=== PATIENT | female | born 1975 | race Caucasian/White ===

== ENCOUNTER → 2022-12-28 09:29 | Outpatient (BNVA) | payer BC, SELFPAY | PROVIDERS: Visit Provider Physician Assistant ==

== ENCOUNTER 2023-02-02 08:59 | Outpatient (AMB) | payer OTHER, SELFPAY ==
--- NOTE | 2023-02-02 09:00 | MHC.OFFVISWM ---
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 Case Briefer Required: No Allergies No Known Allergies Allergy (Verified 02/02/23 09:02) Medication List - Last Reconciled 02/02/23 by LOIS Newman aspirin 81 mg PO DAILY empagliflozin (Jardiance) 25 mg PO DAILY insulin degludec (Tresiba FlexTouch U-100 insulin) 40 units subcut BEDTIME levothyroxine 150 mcg PO DAILY lisinopril 5 mg PO DAILY metformin ER 2,000 mg PO DAILY rosuvastatin 10 mg PO DAILY tirzepatide (Mounjaro) 15 mg subcut QWEEK vitamin B complex (B Complex-Vitamin B12 tablet) 1 tab PO DAILY HPI HPI Comments History of Present Illness Details Pt is here to start the [facility] Weight Management surgical weight loss program. She heard about our program from a co-worker. Her goal is to lose weight and achieve a healthy lifestyle as well as to improve, if not resolve, obesity related medical conditions, including DM, HLD. She reports first being concerned about her weight over the last 15 years, highest weight to date was 330. Her initial weight upon presentation to the clinic on 12/28/22 was 240.4 pounds with a BMI of 35.5. She states she was re-started on her Munjaro in the interim. Current weight is 232.6 pounds with a BMI of 34.4. She has tried multiple methods of weight loss including fad diets without permanent results. She lives with her and 2 kids. 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 She does have a hx of provoked PE in 2017 after prolonged travel, treated with 6 months of anticoagulation. She wakes at:?5 am, and goes to bed at?10 pm. Dinner is at 6 pm. Breakfast: egg sandwich on low carb bagel thin w ham and cheesse AM snack: skip or cheese stick Lunch: tuna wrap PM snack: fruit Dinner: tuna wrap, chicken and spinach After dinner: skip or yogurt Other snacks: occ chips, cookies Liquids: 60 oz water, rare diet soda, no juice Alcohol/marijuana/tobacco intake: hard seltzer (8-10 on weekends, 2 of the month), no cannabis, no tobacco Exercise: walking outside and sometimes the gym [employer], weights then 45 min cardio GERD score: 1 STEVEN score: 2 ESS score: 8 QOL score: 69 PFSH Medical History Pulmonary embolism Delivery with history of Surgical History Hx of section Social History Alcohol intake: current Alcohol intake frequency: holidays/special occasions only Patient Tobacco Use Status: Never used Tobacco Review of Systems Const All systems reviewed & are unremarkable except as noted in HPI and below Physical Exam Vital Signs: Last Vital Signs Temp 97.9 F 02/02/23 09:05 Pulse 95 02/02/23 09:05 BP 131/83 02/02/23 09:05 Pulse Ox 97 02/02/23 09:05 Oxygen Delivery Method Room Air 02/02/23 09:05 BMI result Body Mass Index 34.3 Const General: cooperative, healthy appearing and no acute distress Orientation/consciousness: patient oriented x3 HEENT Head: Yes normal to inspection Ears: hearing grossly normal bilaterally General nose exam: Normal external nose present Face and sinus: Yes normal facial exam Eyes General: appearance normal, both eyes and all related structures Resp Effort & Inspection: normal respiratory effort Auscultation: clear to auscultation bilaterally Cardio Rate: regular rate Rhythm: regular rhythm Heart sounds: S1 normal heart sound present and S2 normal heart sound present GI Inspection: Yes normal to inspection, No distended and Yes obesity Palpation (GI): Soft to palpation, nontender and no guarding Auscultation: normal bowel sounds Skin General skin exam: no rashes or lesions noted Neuro General: patient oriented x3 Extrem General: No edema Psych Appearance: grossly normal Mental Status: mental status grossly normal Speech and movement: Normal speech and movement present Affect: normal affect Attitude: cooperative Assessment & Plan Assessment & Plan (1) Obesity (BMI 30-39.9): Code(s): E66.9 - Obesity, unspecified Plan: This is a?47 yo female who will start our SWL program to prepare for bariatric surgery.? Blood work, h pylori , CXR, ECG, Abd US and UGI have been ordered. She is being scheduled for RD and BH initial consultations. She will start SWL classes and watch the first three videos before her next appointment. ? Adequate sleep of 7-8 hours per night discussed, awakening at 5 am and trying to go to bed at 10 pm ? Purchase body composition analyzer scale (Janeen chan or Kirsten recommended) and check weight weekly. The best time to do this is first thing in the morning after going to the bathroom. 1. Nutritional counseling: Be sure to careful read the number of scoops per shake Start with 2 Celebrate Rebuild shakes ([facility] [employer], Smart[employer], [employer]) First shake (1/2 scoop in 8 oz low fat unsweetened almond milk) at 6am-8am, Second shake (1 scoop in 10 ounces of unsweetened almond milk) at 8am-10pm 1 protein bar (DocuSpeakebrate Protein bars at [facility] [employer], [employer], [employer]) at 10am-12pm. Another bar at 1pm-3pm Dinner at 5-6pm (8 forks of protein and 8 forks of salad/vegetables). Meal to include lean meat (beef, fish, pork, turkey, chicken), cooked vegetables or a salad with olive oil and/or fruits (berries, pears, apples, kiwi). Avoid salt, breads, potatoes, rice, pasta, desserts. Another bar at 7pm-9pm. Try to drink 64 oz of water daily and avoid soda and juices. ?2. Each shake would be drunk slowly, like coffee in a period of 2 hours. ?3. Cut each bar in 4 pieces and eat each piece in 30 min ?to make each bar last 2 hours. ?4. I emphasized the importance of measuring accurately the food portion and measure it carefully when serving the food on the plate ?5. The meal portions include 8 full-size forks of meat and 8 full-size forks of salad. You always eat the meat portion but you can replace up to half of the forks of salad/vegetables with rice, potatoes or pasta, or a fruit ?if you like. The less you do it the better weight loss will be. ?6. One full-size fork is what can be scooped on the fork without falling aside and not what can be bit with the fork. Use regular forks like those you find in a typical restaurant. ?7.? Please send me weight measurements as soon as possible and then once a week. Always include your diet and exercise plan. Alternatively come weekly at the office for weight checks and send me the measurements. ?8. Exercise counseling: Begin by watching a stretching for beginners video. Start slowly and begin to stretch your muscles. You should do this before and after each exercise session to prevent injury. Please return to [employer] [facility] gym near your home. Ask the repair manager or one of the trainers how to use the machines if you are unfamiliar with them. Start elliptical with a resistance of 2. Increase resistance by 1 every 3 min to your most comfortable resistance with a max resistance of 8. Reduce the resistance by 1 every 3 minutes back down to 2 and repeat cycles for 300 calories. Alternatively, start treadmill with a speed of 3.0 and incline of 0, increasing incline by 1 every 3 minutes to the highest comfortable level (max 6 for now) then decrease in the same fashion. Repeat process to a goal of 300 calories. Goal of 2000 calories burned or more weekly. You may also consider use of the stationary bike. The easiest would be to chose the fat-burn or interval training program on the machine and do this until you reach the 300 calorie goal. Alternatively, you can manually adjust the resistance in a similar fashion as mentioned above, (resistance of 2-8 with a goal speed of 12 mph). Tracking calories is essential. 9. Alternatively start walking outside daily, tracking calories with a goal of 300 calories per day, daily. You can download the [employer] which can track your time, distance and calories while walking outside. You press start in the [employer] when you start and then stop when you are finished. 10.? It is important to communicate by text weekly your progress, weight measurements and if any problems with the plans. 11. Please get labs, EKG and chest X-Ray within 1 week. 12. Discussed and answered all questions regarding?obtained consent to participate in the [facility]?Registry. 13. Please follow the diet plan exactly, without any change. If you do not like something about the plan or you feel hungry, you need to communicate with me so I can help you revise the plan. You should not change the plan yourself. Text me at [phone] 14. Goal is to lose at least 12 pounds in the first month 15. Goal is to lose 10% of your weight before surgery, which is about 23 lbs. Ultimate weight goal: 209 lbs before surgery Patient is morbidly obese and is not considered stable at this time.?I spent a total of 70 minutes reviewing/updating records, examining the patient and counseling the patient on weight management as detailed above. Orders: Orders Complete Blood Count Auto Diff Today E03.9 - Hypothyroidism, unspecified, E11.9 - Type 2 diabetes mellitus without complications, E66.9 - Obesity, unspecified, E78.00 - Pure hypercholesterolemia, unspecified Vitamin B12 and Folate Today E03.9 - Hypothyroidism, unspecified, E11.9 - Type 2 diabetes mellitus without complications, E66.9 - Obesity, unspecified, E78.00 - Pure hypercholesterolemia, unspecified Zinc Today E03.9 - Hypothyroidism, unspecified, E11.9 - Type 2 diabetes mellitus without complications, E66.9 - Obesity, unspecified, E78.00 - Pure hypercholesterolemia, unspecified Vitamin B1 Today E03.9 - Hypothyroidism, unspecified, E11.9 - Type 2 diabetes mellitus without complications, E66.9 - Obesity, unspecified, E78.00 - Pure hypercholesterolemia, unspecified Vitamin A Today E03.9 - Hypothyroidism, unspecified, E11.9 - Type 2 diabetes mellitus without complications, E66.9 - Obesity, unspecified, E78.00 - Pure hypercholesterolemia, unspecified C Reactive Protein Today E03.9 - Hypothyroidism, unspecified, E11.9 - Type 2 diabetes mellitus without complications, E66.9 - Obesity, unspecified, E78.00 - Pure hypercholesterolemia, unspecified Ferritin Today E03.9 - Hypothyroidism, unspecified, E11.9 - Type 2 diabetes mellitus without complications, E66.9 - Obesity, unspecified, E78.00 - Pure hypercholesterolemia, unspecified PTHI Today E03.9 - Hypothyroidism, unspecified, E11.9 - Type 2 diabetes mellitus without complications, E66.9 - Obesity, unspecified, E78.00 - Pure hypercholesterolemia, unspecified TSH reflex Free T4 Today E03.9 - Hypothyroidism, unspecified, E11.9 - Type 2 diabetes mellitus without complications, E66.9 - Obesity, unspecified, E78.00 - Pure hypercholesterolemia, unspecified Vitamin D 25-OH Total Today E03.9 - Hypothyroidism, unspecified, E11.9 - Type 2 diabetes mellitus without complications, E66.9 - Obesity, unspecified, E78.00 - Pure hypercholesterolemia, unspecified US abdomen comp w elastography Today E03.9 - Hypothyroidism, unspecified, E11.9 - Type 2 diabetes mellitus without complications, E66.9 - Obesity, unspecified, E78.00 - Pure hypercholesterolemia, unspecified XR chest 2V Today E03.9 - Hypothyroidism, unspecified, E11.9 - Type 2 diabetes mellitus without complications, E66.9 - Obesity, unspecified, E78.00 - Pure hypercholesterolemia, unspecified Insulin Today E03.9 - Hypothyroidism, unspecified, E11.9 - Type 2 diabetes mellitus without complications, E66.9 - Obesity, unspecified, E78.00 - Pure hypercholesterolemia, unspecified Lipid Panel Today E03.9 - Hypothyroidism, unspecified, E11.9 - Type 2 diabetes mellitus without complications, E66.9 - Obesity, unspecified, E78.00 - Pure hypercholesterolemia, unspecified IRON PROFILE Today E03.9 - Hypothyroidism, unspecified, E11.9 - Type 2 diabetes mellitus without complications, E66.9 - Obesity, unspecified, E78.00 - Pure hypercholesterolemia, unspecified Comprehensive Met. Panel Today E03.9 - Hypothyroidism, unspecified, E11.9 - Type 2 diabetes mellitus without complications, E66.9 - Obesity, unspecified, E78.00 - Pure hypercholesterolemia, unspecified H Pylori Breath Test Today E03.9 - Hypothyroidism, unspecified, E11.9 - Type 2 diabetes mellitus without complications, E66.9 - Obesity, unspecified, E78.00 - Pure hypercholesterolemia, unspecified Hemoglobin A1c Today E03.9 - Hypothyroidism, unspecified, E11.9 - Type 2 diabetes mellitus without complications, E66.9 - Obesity, unspecified, E78.00 - Pure hypercholesterolemia, unspecified ECG 12 lead EKG Today E03.9 - Hypothyroidism, unspecified, E11.9 - Type 2 diabetes mellitus without complications, E66.9 - Obesity, unspecified, E78.00 - Pure hypercholesterolemia, unspecified FL upper GI w air Today E03.9 - Hypothyroidism, unspecified, E11.9 - Type 2 diabetes mellitus without complications, E66.9 - Obesity, unspecified, E78.00 - Pure hypercholesterolemia, unspecified Referrals Nutrition/Dietitian Referral E03.9 - Hypothyroidism, unspecified, E11.9 - Type 2 diabetes mellitus without complications, E66.9 - Obesity, unspecified, E78.00 - Pure hypercholesterolemia, unspecified Behavioral Health Referral E03.9 - Hypothyroidism, unspecified, E11.9 - Type 2 diabetes mellitus without complications, E66.9 - Obesity, unspecified, E78.00 - Pure hypercholesterolemia, unspecified Coding Level of Care Code New Pt Level 5 (27995) Diagnoses Obesity (BMI 30-39.9) E66.9 Time Spent (min) 70
[2023-02-02 09:05] VITALS: BP 131/83; PULSE 95; TEMP 36.6; O2SAT 97; BMI 34.3
== END 2023-02-02 10:15 | disposition home or self-care (01) ==
PROVIDERS: Visit Provider Physician Assistant Surgical
DX: E66.9 Obesity, unspecified (principal); Z68.34 Body mass index [BMI] 34.0-34.9, adult
CPT/HCPCS: 99205

== ENCOUNTER → 2023-02-02 08:59 | Outpatient (BNVA) | payer BC, SELFPAY | PROVIDERS: Visit Provider Physician Assistant Surgical | DX: E66.9 Obesity, unspecified (principal); Z68.34 Body mass index [BMI] 34.0-34.9, adult | CPT/HCPCS: 99211 ==

== ENCOUNTER 2023-02-02 19:21 | Outpatient (REF) | payer OTHER, SELFPAY ==
[2023-02-04 16:39] LABS: H Pylori Breath Test Negative (Negative)
== END 2023-02-02 19:22 | disposition home or self-care (01) ==
LOC: HO.LNP 19:21
PROVIDERS: Visit Provider Physician Assistant Surgical
DX: E66.9 Obesity, unspecified (principal); E11.9 Type 2 diabetes mellitus without complications; E78.00 Pure hypercholesterolemia, unspecified; E03.9 Hypothyroidism, unspecified
CPT/HCPCS: 83013

== ENCOUNTER 2023-02-09 08:23 | Outpatient (REF) | payer OTHER, SELFPAY ==
--- NOTE | ~2023-02-09 | XR_ITS ---
EXAMINATION: XR CHEST CLINICAL INFORMATION: Unspecified obesity COMPARISON: None available. TECHNIQUE: 2 views of the chest were obtained. FINDINGS: No significant abnormality is noted involving the heart, lungs, mediastinum, bony thorax or soft tissues. XR/XR chest 2V IMPRESSION: Unremarkable examination.
--- NOTE | 2023-02-09 08:33 | ECG_ITS ---
Test Reason : e66.9 Blood Pressure : / mmHG Vent. Rate : 076 BPM Atrial Rate : 076 BPM P-R Int : 170 ms QRS Dur : 102 ms QT Int : 414 ms P-R-T Axes : 053 -49 030 degrees QTc Int : 465 ms Normal sinus rhythm Left axis deviation Incomplete right bundle branch block Abnormal ECG No previous ECGs available Referred By: Zbigniew Vazquez Electronically Signed By:VILMA BEE
[2023-02-09 08:40] LABS: MANUAL DIFF FLAG NO
[2023-02-09 08:54] LABS: Basophils Percent Auto 0.5 % (0-2); Eosinophils Absolute Auto 0.3 X10*3/uL (0.0-0.4); Eosinophils Percent Auto 3.2 % (0-4); Hematocrit 47.5 % (37.0-47.0); Hemoglobin 15.7 g/dl (12.0-16.0); Imm Gran Abs Auto 0.03 X10*3/uL (0.00-0.03); Imm Gran Pct Auto 0.4 % (0.0-0.4); Lymphocytes Absolute Auto 2.3 X10*3/uL (1.2-4.9); Lymphocytes Percent Auto 29.5 % (20-40); Mean Corpuscular HGB Conc 33.1 g/dl (31.0-35.0); Mean Corpuscular Hemoglobin 31.5 pg (27.0-33.0); Mean Corpuscular Volume 95.2 fL (80.0-98.0); Mean Platelet Volume 9.8 fL (9.4-12.3); Monocytes Absolute Auto 0.6 X10*3/uL (0.1-1.2); Monocytes Percent Auto 7.8 % (2-11); Neutrophils Absolute Auto 4.6 x10*3/uL (2.0-8.3); Neutrophils Percent Auto 58.6 % (45-73); Platelet Count 206 X10*3/uL (160-400); Red Blood Count 4.99 X10*6/uL (4.20-5.50); White Blood Count 7.8 X10*3/uL (4.8-10.8)
[2023-02-09 10:47] LABS: Alanine Aminotransferase 18 U/L (0-31); Albumin Level 4.4 g/dL (3.5-5.0); Alkaline Phosphatase 50 U/L (39-117); Anion Gap 12 (12-20); Aspartate Amino Transferase 15 U/L (5-31); Bilirubin Total 0.3 mg/dL (0.0-1.0); Blood Urea Nitrogen 15 mg/dL (9-16); C Reactive Protein 0.24 mg/dL (< or = 0.50); Calcium 9.7 mg/dL (8.4-10.2); Carbon Dioxide 27 mmol/L (22-29); Chloride 105 mmol/L (96-108); Cholesterol 150 mg/dL (<200); Estimated Glomerular Filt Rate > 60; Glucose Random 168 mg/dL (60-115); HDL Cholesterol 61 mg/dL (>40); Iron 132 mcg/dL (30-160); LDL Cholesterol Calculated 73 mg/dL (<100); Percent Iron Saturation 54 % (15-50); Sodium 140 mmol/L (135-145); Total Iron Binding Capacity 244 mcg/dL (228-428); Total Protein 7.3 g/dL (6.5-8.0); Triglycerides 83 mg/dL (<150); Unsaturated Iron Binding 112 ug/dL
[2023-02-09 10:54] LABS: Ferritin 163 ng/mL (10-250); Insulin 4 uU/mL (2-29); TSH reflex Free T4 3.08 uIU/mL (0.32-4.0); Vitamin D 25-OH Total 41.2 ng/mL (>30)
[2023-02-09 11:09] LABS: Folate 13.9 ng/mL (> or = 4.0); Vitamin B12 1587 pg/mL (200-900)
[2023-02-09 12:00] LABS: Estimated Average Glucose 183 mg/dL
[2023-02-10 16:19] LABS: Calcium (PTHI) 9.6 mg/dL (8.6-10.2); PTHI 25 pg/mL (16-77)
[2023-02-12 22:48] LABS: Zinc 99 mcg/dL (60-130)
[2023-02-13 14:57] LABS: Vitamin B1 12 nmol/L (8-30)
[2023-02-15 10:43] LABS: Vitamin A 57 mcg/dL (38-98)
== END 2023-02-09 08:24 | disposition home or self-care (01) ==
LOC: HO.XRAY 08:23
PROVIDERS: PCP Family Medicine; Visit Provider Physician Assistant Surgical
DX: E66.9 Obesity, unspecified (principal); E11.9 Type 2 diabetes mellitus without complications; E03.9 Hypothyroidism, unspecified; E78.00 Pure hypercholesterolemia, unspecified
CPT/HCPCS: 36415; 71046; 80053; 80061; 82306; 82607; 82728; 82746; 83036; 83525; 83540; 83970; 84425; 84443; 84590; 84630; 85025; 86140; 93005

== ENCOUNTER 2023-02-10 08:26 | Outpatient (REF) | payer OTHER, SELFPAY ==
--- NOTE | ~2023-02-10 | FL_ITS ---
EXAMINATION: XR FLUOROSCOPY UPPER GI WITH AIR CLINICAL INFORMATION: Preop bariatric; obesity, unspecified. COMPARISON: None TECHNIQUE: Fluoroscopic air contrast upper GI examination was performed utilizing standard techniques with thin and thick barium and effervescent granules. Numerous spot images were obtained. FINDINGS: Hypopharyngeal structures appear normal without evidence of mass or diverticulum. There was no significant cricopharyngeal achalasia. Mild laryngeal penetration of contrast was noted on the first swallow. No gross aspiration was present. This barium cleared on subsequent swallow with no additional laryngeal penetration observed. Dual and single contrast images of the esophagus demonstrate normal caliber, contour, and mucosal pattern. No evidence of stricture, mass, or ulcerations identified. Primary peristaltic wave of the esophagus was normal and propulsive. It was followed by mild tertiary contractions which were nonpropulsive. There is a small type I hiatus hernia identified. There may be an old Schatzki's ring present in the distal esophagus. It does not result in any significant narrowing. Mild to moderate episodic gastroesophageal reflux was seen during the course of the examination, to the level of the aortic arch. Dual contrast and single contrast images of the stomach demonstrated normal contour and mucosal pattern without evidence of mass, ulceration, or other abnormality. Contrast freely passed into the gastric antrum and duodenal bulb without delay. Single and air-contrast images of the duodenal bulb demonstrate no abnormality. The duodenal sweep has a normal appearance, course, and mucosal fold appearance. The imaged proximal jejunum has a normal fold pattern and caliber. FLUOROSCOPY TIME: 3 minutes 51 seconds Number of Spot Images: 13 fluoroscopic spot images obtained; 4 cine image hold fluoroscopic runs obtained. DOSE AREA PRODUCT: [id number] uGy-m2 (microgray-meter squared) FL/FL upper GI w air IMPRESSION: 1. Small type I hiatus hernia. 2. Mild to moderate gastroesophageal reflux noted episodically throughout the exam, to the level of the aortic arch. 3. Possible old Schatzki's ring, however no significant narrowing of the distal esophagus. 4. Normal-appearing stomach, duodenal bulb, sweep, and proximal jejunum.
== END 2023-02-10 08:27 | disposition home or self-care (01) ==
LOC: HO.XRAY 08:26
PROVIDERS: PCP Family Medicine; Visit Provider Physician Assistant Surgical
DX: E66.9 Obesity, unspecified (principal); E11.9 Type 2 diabetes mellitus without complications; E78.00 Pure hypercholesterolemia, unspecified; E03.9 Hypothyroidism, unspecified
CPT/HCPCS: 74246

== ENCOUNTER → 2023-02-10 08:27 | Outpatient (BNV) | payer OTHER, SELFPAY | PROVIDERS: PCP Family Medicine; Visit Provider Radiology Diagnostic Radiology | DX: K21.9 Gastro-esophageal reflux disease without esophagitis (principal) | CPT/HCPCS: 74246 ==

== ENCOUNTER 2023-03-02 09:30 | Outpatient (AMB) | payer OTHER, SELFPAY ==
--- NOTE | 2023-03-02 09:32 | MHC.OFFVISWM ---
Intake VS Expanded 03/02/23 09:41 BP 118/73 Blood Pressure Location Rt brachial Blood Pressure Position Sitting Pulse 72 Pulse Source Pulse Oximeter Temp 98.0 F Temperature Source Temporal Artery Scan Pulse Oximetry 95 Oxygen Delivery Method Room Air Height 5 ft 9 in Weight 224 lb 3.2 oz BMI 33.1 Body Fat % 37.7 Body Fat Mass 84.4 Fat Free Mass 139.6 Visceral Fat Rating 9.0 Body Water % 44.4 Body Water Mass 99.4 Muscle Mass/Score 132.4 Basal Metabolic Rate/Score 1,911 Intake Visit Reasons: (OV) F/U SWL Project Lead Required: No Allergies No Known Allergies Allergy (Verified 02/02/23 09:02) Medication List - Last Reconciled 03/02/23 by LOIS Newman aspirin 81 mg PO DAILY empagliflozin (Jardiance) 25 mg PO DAILY levothyroxine 150 mcg PO DAILY lisinopril 5 mg PO DAILY metformin ER 2,000 mg PO DAILY rosuvastatin 10 mg PO DAILY tirzepatide (Mounjaro) 15 mg subcut QWEEK vitamin B complex (B Complex-Vitamin B12 tablet) 1 tab PO 3XW HPI HPI Comments History of Present Illness Details The patient is a pleasant 47 year old female who returns to the clinic for pre-operative surgical weight loss management. They were last seen in the office on 02/02/23, recorded weight at that time was 232.6 pounds, with a BMI of 34.3. Today's weight is 224.2 pounds and BMI is 33.1. There has been a weight loss of 16.2 pounds since initiating the surgical weight loss program on 12/28/22 with a total body weight loss of 6.7 %. BS have been improved to average 118 from 160s Pre op work up completed as follows: SWL classes:? 12/21 BH appts: 03/07/23 ? ? RD appts: 03/14/23 Labs: 02/09/23-A1C: 8.2 H. pylori: 02/02/23-neg CXR: 02/09/23-nad EK02/09/23 incomplete RBBB-Cards/stress test ordered ABD U/S: 03/03/23 UGI: 02/10/23- sm HH, mild-mod gerd, ? old schatzki ring but no stenosis The patient reports the meal plan is going well during the week although she goes camping on the weekends and has tried to keep eating choices controlled on the weekend. She feels as though the celebrate bars are not as filling. Current meal plan includes: 2 Celebrate Rebuild shakes First shake (1/2 scoop in 8 oz low fat unsweetened almond milk) at 6am-8am, Second shake (1 scoop in 10 ounces of unsweetened almond milk) at 8am-10pm 1 protein bar (Celebrate Protein) at 10am-12pm. Another bar at 1pm-3pm Dinner at 5-6pm (8 forks of protein and 8 forks of salad/vegetables). Another bar at 7pm-9pm. Drinking 60 oz of water Current exercise plan includes: walking 3 miles 4 x per week. 300 per session. [facility] Medical History Pulmonary embolism Delivery with history of Surgical History Hx of section Social History Alcohol intake: current Alcohol intake frequency: holidays/special occasions only Patient Tobacco Use Status: Never used Tobacco Physical Exam Const General: healthy appearing and no acute distress Resp Effort & Inspection: normal respiratory effort Auscultation: clear to auscultation bilaterally Cardio Rate: regular rate Rhythm: regular rhythm GI Auscultation: normal bowel sounds Extrem General: Yes normal to inspection Assessment & Plan Assessment & Plan (1) Obesity (BMI 30-39.9): Code(s): E66.9 - Obesity, unspecified Plan: change meal plan to : 2 Celebrate Rebuild shakes First shake (1 scoop in 10 oz low fat unsweetened almond milk) at 6am-8am, Second shake (1 scoop in 10 ounces of unsweetened almond milk) at 8am-10pm 1 protein bar (Celebrate Protein) at 10am-12pm. Another bar at 1pm-3pm Dinner at 5-6pm (8 forks of protein and 8 forks of salad/vegetables). Another 1/2 bar at 7pm-9pm. Encouraged to increase exercise, calories burned during the days that she is walking as well as incorporating 2 days at the gym. Return to clinic in 3-4 weeks. Reminded about coming appointments. Coding Level of Care Code Est Pt Level 3 (64252) Diagnoses Obesity (BMI 30-39.9) E66.9
[2023-03-02 09:41] VITALS: BP 118/73; PULSE 72; TEMP 36.7; O2SAT 95; BMI 33.1
== END 2023-03-02 10:00 | disposition home or self-care (01) ==
PROVIDERS: Visit Provider Physician Assistant Surgical
DX: E66.9 Obesity, unspecified (principal); Z68.33 Body mass index [BMI] 33.0-33.9, adult
CPT/HCPCS: 99213

== ENCOUNTER → 2023-03-02 09:30 | Outpatient (BNVA) | payer BC, SELFPAY | PROVIDERS: Visit Provider Physician Assistant Surgical ==

== ENCOUNTER 2023-05-17 14:00 | Outpatient (AMB) | payer OTHER, SELFPAY ==
[2023-05-17 14:06] VITALS: BP 110/70; PULSE 76; BMI 32.9
--- NOTE | 2023-05-17 14:06 | MHC.OFFVIS ---
Intake Vital Signs 05/17/23 14:06 Height 5 ft 9 in Weight 222 lb 10.67 oz BMI 32.9 BP 110/70 Blood Pressure Location Lt brachial Position Sitting Pulse 76 Intake Visit Reasons: NPV/Abnormal EKG/Caty Vazquez Intake Note: NEw patient abnormal ekg feeling good Allergies No Known Allergies Allergy (Verified 02/02/23 09:02) Medication List - Last Reconciled 05/17/23 by Alexys Pierre MD aspirin 81 mg PO DAILY empagliflozin (Jardiance) 25 mg PO DAILY levothyroxine 150 mcg PO DAILY lisinopril 5 mg PO DAILY metformin ER 2,000 mg PO DAILY rosuvastatin 10 mg PO DAILY tirzepatide (Mounjaro) 15 mg subcut QWEEK vitamin B complex (B Complex-Vitamin B12 tablet) 1 tab PO 3XW HPI HPI Comments History of Present Illness Details Thank you for referring Shari in cardiology consultation today for abnormal EKG. She is a pleasant 47-year-old female who is interested in weight loss and had recently seen you for the same. 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 She was referred here for further evaluation. She has history of diabetes which is not better controlled when she gets her medications. She has also has history of hyperlipidemia for which she is on statin therapy. She is generally very active and has no exertional symptoms especially climbing a flight of stairs. Denies any exertional chest pain or shortness of breath. However she does not exercise on a regular basis. Any other cardiac symptoms. No worsening shortness of breath, orthopnea, PND. Denies any palpitations. She is currently on lisinopril therapy for renal protection. She denies smoking and denies any significant family history for coronary artery disease. [facility] Medical History Pulmonary embolism Delivery with history of Surgical History Hx of section Family History (Updated 05/17/23 @ 14:16 by DAYSI Clark) Father Cancer Mother Hypercholesteremia Social History Alcohol intake: current Alcohol intake frequency: holidays/special occasions only Patient Tobacco Use Status: Never used Tobacco Review of Systems Const Denies chills, Denies daytime sleepiness, Denies fatigue, Denies fever(s), Denies frequent falls, Denies poor appetite, Denies snoring, Denies stops breathing during sleep, Denies weakness, Denies weight gain and Denies weight loss Eyes Denies loss of vision ENT Denies dizziness and Denies hearing loss Card Denies chest pain, Denies claudication, Denies leg edema, Denies lightheadedness, Denies palpitations, Denies dyspnea, Denies dyspnea on exertion and Denies orthopnea Resp Denies cough, Denies excessive phlegm production, Denies dyspnea, Denies dyspnea on exertion, Denies snoring and Denies wheezing GI Denies abdominal pain, Denies hematochezia, Denies change in bowel habits, Denies nausea and Denies vomiting Denies urinary frequency and Denies dysuria Musc Denies arthralgias, Denies muscle weakness, Denies numbness and Denies other (frequent falls) Skin/Breast Denies nail changes and Denies rash Neuro Denies Abnormal speech present, Denies dizziness, Denies frequent falls, Denies loss of vision, Denies memory loss, Denies numbness and Denies weakness Psych Denies depression and Denies memory loss Endo Denies fatigue and Denies palpitations Daryl/Lymph Reports easy bruising and Reports other (anemia) Aller/Immun Denies wheezing Physical Exam Vital Signs: Last Vital Signs Pulse 76 05/17/23 14:06 BP 110/70 05/17/23 14:06 BMI result Body Mass Index 32.9 Const General: cooperative, comfortable, no acute distress, alert, awake and Physically active Nutritional Appearance: obese Orientation/consciousness: patient oriented x3 Limitations: no limitations HEENT Head: Yes atraumatic Neck Neck: Yes trachea midline, Yes supple and Yes no JVD Resp Effort & Inspection: normal respiratory effort Auscultation: clear to auscultation bilaterally Cardio Jugular venous distension: no JVD Palpation: normal PMI Rate: regular rate Rhythm: regular rhythm Heart sounds: S1 normal heart sound present, S2 normal heart sound present, no click, no gallops, no murmurs and no rubs GI Auscultation: normal bowel sounds Skin General skin exam: no rashes or lesions noted Neuro General: patient oriented x3 and no focal motor deficits Speech: No Abnormal speech present Extrem General: Yes no clubbing, cyanosis or edema Office Procedures EKG Details: EKG shows normal sinus rhythm with left anterior fascicular block incomplete right bundle-branch block. Poor R-wave progression most likely due to lead placement. [id number], Complete Assessment & Plan Assessment & Plan (1) Abnormal EKG: Code(s): R94.31 - Abnormal electrocardiogram [ECG] [EKG] Plan: Abnormal EKG suggestive left anterior fascicular block in this middle-aged woman with multiple risk factors for cardiovascular disease. She has no cardiovascular symptoms and no prolonged QT of testing is necessary. She require evaluation of cardiac structure and function. Will suggest an echocardiogram to evaluate LV systolic and diastolic function to evaluate for any calcific valve changes. This was discussed with her. If the echocardiogram is within normal limits, would pursue this with annual EKG done through her PCP's office. In terms of generalized cardiovascular risk factor modification, aggressive control of diabetes goal hemoglobin A1c less than 7%. Goal LDL less than 70 mg/dL should be pursued. Encouraged to increase activity level and if she has any exertional limiting symptoms would then pursue further testing. Blood pressure is well optimized. Continue participate in aggressive weight loss program. Will follow up in the clinic if need be. Thank you for allowing me to partake in her care Coding Level of Care Code New Pt Level 3 (93358) Diagnoses Abnormal EKG R94.31 CPT Codes EKG - CPT: 24062-[id number], Complete ([id number])
== END 2023-05-17 15:25 | disposition home or self-care (01) ==
PROVIDERS: PCP Family Medicine; Visit Provider Internal Medicine Cardiovascular Disease
DX: R94.31 Abnormal electrocardiogram [ECG] [EKG] (principal)
CPT/HCPCS: 93010; 99203

== ENCOUNTER → 2023-05-17 14:00 | Outpatient (BNVA) | payer OTHER, SELFPAY | PROVIDERS: PCP Family Medicine; Visit Provider Internal Medicine Cardiovascular Disease | DX: R94.31 Abnormal electrocardiogram [ECG] [EKG] (principal) | CPT/HCPCS: 93005 ==

== ENCOUNTER → 2023-07-11 09:59 | Outpatient (REF) | payer OTHER, SELFPAY ==
--- NOTE | 2023-07-11 10:06 | CA_ITS ---
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 The calculated ejection fraction is 61% by biplane method. - No obvious valvular pathology seen on this study. Findings Left Ventricle Normal left ventricular cavity size. There is normal left ventricular wall thickness. The left ventricular systolic function is normal. The calculated ejection fraction is 61% by biplane method. There is no evidence of regional wall motion abnormalities. Diastolic function is normal for age. LV peak GLS -21.4%. Right Ventricle Normal right ventricular cavity size and systolic function. Atria Both atria are normal in size. Aortic Valve There is a normal trileaflet aortic valve. There is no aortic valve stenosis. There is no aortic valve regurgitation. Mitral Valve The mitral valve appears normal. There is no mitral valve regurgitation. There is no mitral valve stenosis. Pulmonic Valve The pulmonic valve is likely normal. Tricuspid Valve Normal tricuspid valve structure. There is trace tricuspid valve regurgitation. There is no evidence of pulmonary hypertension. Great Vessels The asc aorta is normal in size. Venous The inferior vena cava is mildly dilated and collapses greater than 50% with inspiration. Pericardium/Pleural There is no evidence of pericardial effusion. Prior Study Comparison No prior study available for comparison. Recommendations, Care & Conclusions No obvious valvular pathology seen on this study. Measurements 2D Linear Measurements IVSd: 1.04 0.6-0.9/0.6-1.0 cm LVIDd: 4.53 3.9-5.3/4.2-5.9 cm LVIDd Index: 2.13 2.4-3.2/2.2-3.1 cm/m2 LVIDs: 2.88 2.0-3.6 cm LVPWd: 0.99 0.7-1.1 cm Ao Root: 3.30 2.1-3.5 cm LA Diam: 4.10 2.7-3.8/3.0-4.0 cm LAIDs Index: 1.92 1.5-2.3 cm/m2 LV Mass: 197.45 67-162/88-224 g LV Mass Index: 92.70 43-95/49-115 g/m2 LVOT Diam: 2.20 3.0+(-)1.3 cm 2D Systolic Function EF 4C: 58.80 >55% EF 2C: 64.90 >55% EF BiP: 60.90 >55% Mitral Valve MV Pk E: 0.74 MV PK A: 0.65 MV Decel Time: 180.00 E/A: 1.10 E'Lateral: 13.50 E'Medial: 8.70 E/E' Med: 8.50 E/E' Lat: 5.50 PHT: 53.00 MVA PHT: 4.15 Decel [place]: 4.09 Aortic Valve AoV Pk Bharathi: 1.25 AoV Mn Bharathi: 0.85 AoV VTI: 0.30 AoV Pk Grad: 6.00 Aov Mn Grad: 3.00 RAZIA Cont.VTI: 2.53 LVOT LVOT Pk Bharathi: 0.84 LVOT Mn Bharathi: 0.55 LVOT VTI: 0.20 LVOT Pk Grad: 3.00 LVOT Mn Grad: 1.00 LVOT Diam: 2.20 LVOT Area: 3.80 Diastolic Function MV Pk E: 0.74 MV Pk A: 0.65 E/A: 1.10 E'Medial: 8.70 E/E' Med: 8.50 E' Laterial: 13.50 E/E' Lat: 5.50 Right Ventricle TAPSE (mm): 27.00 TVS' Bharathi: 15.00 Tricuspid Valve TR Pk Bharathi: 2.13 TR Pk Grad: 18.00 RA Press: 3.00 RVSP: 21.00 Great Vessels Aorta Ao Root-2D: 3.30 2.0-3.7 cm Ao Asc: 3.20 2.1-3.4 cm Pulmonary Valve PV Pk Bharathi: 0.90 Peak PV Grad: 3.00 Updated in Other Vendor System with Status of Final Lloyd Donovan MD electronically signed on 07/11/2023 9:31:03 AM with status of Final
== END ==
LOC: HO.CARD 09:59
PROVIDERS: PCP Family Medicine; Visit Provider Internal Medicine Cardiovascular Disease
DX: R94.31 Abnormal electrocardiogram [ECG] [EKG] (principal)
CPT/HCPCS: 93306; 93356

== ENCOUNTER → 2023-07-11 10:06 | Outpatient (BNV) | payer OTHER, SELFPAY | PROVIDERS: PCP Family Medicine; Visit Provider Internal Medicine | DX: R94.31 Abnormal electrocardiogram [ECG] [EKG] (principal) | CPT/HCPCS: 93306 ==